=== PATIENT | male | born 1955 | race Caucasian/White ===

== ENCOUNTER → 2020-09-04 | Outpatient (CLI) | payer MEDICARE, MEDICAID ==
[~2020-09-04] MED LIST: AMLO-94 PO; ATOR40TA PO; CLOT15CR73 TP; HYDR-4070 PO; LANTUS SQ; LEVO50TA PO; LIDOcaine 2% 5ml jelly ONE; SEVE800T8 PO
== END | disposition home or self-care (01) ==
LOC: WOUND CARE 11:02
PROVIDERS: ATTEND Nurse Practitioner
DX: T87.44 Infection of amputation stump, left lower extremity (principal); S81.802A Unspecified open wound, left lower leg, initial encounter; E11.622 Type 2 diabetes mellitus with other skin ulcer; L97.828 Non-pressure chronic ulcer of other part of left lower leg with other specified severity; E03.9 Hypothyroidism, unspecified; E78.5 Hyperlipidemia, unspecified; I10 Essential (primary) hypertension; R60.9 Edema, unspecified; Z89.411 Acquired absence of right great toe; Z79.4 Long term (current) use of insulin; Z86.14 Personal history of Methicillin resistant Staphylococcus aureus infection; Z79.899 Other long term (current) drug therapy; X58.XXXA Exposure to other specified factors, initial encounter; Y93.89 Activity, other specified; Y92.89 Other specified places as the place of occurrence of the external cause; Y99.8 Other external cause status; Y83.5 Amputation of limb(s) as the cause of abnormal reaction of the patient, or of later complication, without mention of misadventure at the time of the procedure
CPT/HCPCS: 11043; 11046; 73560; 82948; 87070; 87075; 87077; 87186